=== PATIENT | female | born 1985 | race Caucasian/White ===

== ENCOUNTER 2019-08-20 19:14 | Emergency (ER) | payer OTHER, SELFPAY ==
--- NOTE | ~2019-08-20 | XR_ITS ---
EXAMINATION: XR hip RT 2V w AP pelvis INDICATION: Right hip pain TECHNIQUE: AP view of the pelvis and two views of the right hip are obtained. COMPARISON: None available FINDINGS: Bone alignment is normal. There is no fracture. The soft tissues are unremarkable. A phlebo lith is noted in the right pelvis. IMPRESSION: 1. No acute osseous abnormality. Reviewed, dictated and finalized at location A.
--- NOTE | ~2019-08-20 | XR_ITS ---
EXAMINATION: XR foot RT min 3V DATE: 08/20/2019 19:43 INDICATION: Right foot pain, initial encounter TECHNIQUE: Dorsoplantar, lateral, and 2 oblique views of the right foot were obtained. COMPARISON: None. FINDINGS: There are acute, traumatic, closed, transverse fractures involving the bases of the first t hrough fourth metatarsals. There is soft tissue swelling of the foot near the fractures. Alignment of the metatarsal bases with the tarsals remains anatomic. No additional acute osseous abnormality is e vident. IMPRESSION: 1. Acute fractures at the bases of the first through fourth metatarsals. Reviewed, dictated and finalized at location A.
--- NOTE | ~2019-08-20 | XR_ITS ---
EXAMINATION: XR ankle RT min 3V INDICATION: Right ankle pain, initial encounter TECHNIQUE: Four views of the right ankle are obtained. COMPARISON: None available FINDINGS: There is no fracture, dislocation, or subluxation of the ankle. The ankle soft tissues are unremarkable. Fractures of the first through fourth metatarsals are described separately. IMPRESSION: 1. No acute osseous abnormality of the ankle. Reviewed, dictated and finalized at location A.
[2019-08-20 19:17] VITALS: BP 118/75; PULSE 78; RESP 18; TEMP 36.3; O2SAT 100
--- NOTE | 2019-08-20 19:30 | ED.LOWEXIN ---
HPI - Extremity Injury (Lower) General Chief Complaint: Extremity Injury, Lower Stated Complaint: foot injury Time Seen by Provider: 08/20/19 19:26 Source: RN notes reviewed History of Present Illness HPI Narrative: Patient presents emergency department from home for right foot pain. Patient states that she was stepping down off a curb and denies from store when she twisted her right foot. Patient has pain of her right dorsal foot with mild swelling noted. She denies any other trauma or injury. States she is taking nothing previously for the pain denies any numbness or tingling or any other symptoms Related Data Home Medications Medication Instructions Recorded Confirmed sertraline 100 mg PO DAILY 08/20/19 sumatriptan succinate [Imitrex] 100 mg PO ONCE 08/20/19 Allergies Allergy/AdvReac Type Severity Reaction Status Date / Time nickel AdvReac Rash Verified 08/20/19 19:21 Review of Systems Review of Systems: Narrative: Gen.: Denies fevers or chills Musculoskeletal: See HPI Neuro: Denies numbness, tingling, weakness Skin: Denies rash Endo: Denies DM PMFSH Past Medical History Medical History (Updated 08/20/19 @ 20:45 by Anshu Alexis DO) Patient denies significant medical history Social History Social History Gender identity (if verbalized by the patient): Female Exam Narrative: Exam Narrative: APPEARANCE: No acute distress, nontoxic, resting in bed Eyes: EOMI HEENT: Normocephalic, atraumatic, RESPIRATORY: No respiratory distress MUSCULOSKELETAl: Tender palpation of the right dorsal midfoot with swelling noted no ecchymosis mild tenderness of the lateral medial malleolus with no swelling or ecchymosis, no tenderness of the right knee or hip, dorsalis pedis pulse 2+, neurovascular intact NEURO: Awake and alert. Following commands, speech normal, no focal deficits SKIN:: Warm, dry. Normal Color no rash or lesions Course Course Emergency Course: Patient does complain of some right hip pain at this time there is no tenderness over the right hip she has full flexion extension without pain but mild noted by the patient in the region obtain x-ray Dr. Martinez presentation work-up. Agrees with plan for discharge with short leg posterior splint follow-up as an outpatient Discussed with patient results of workup and diagnosis. Discussed need for follow-up with primary care, proper use of medication, and reasons to return to the emergency department. Patient understands and agrees to current treatment plan Vital Signs Vital signs: Vital Signs Temperature 97.3 F L 08/20/19 19:17 Pulse Rate 78 08/20/19 19:17 Respiratory Rate 18 08/20/19 19:17 Blood Pressure 118/75 08/20/19 19:17 Pulse Oximetry 100 08/20/19 19:17 Temperature 97.3 F L 08/20/19 19:17 Pulse Rate 78 08/20/19 19:17 Respiratory Rate 18 08/20/19 19:17 Blood Pressure 118/75 08/20/19 19:17 Pulse Oximetry 100 08/20/19 19:17 Procedures Orthopedic Splinting/Casting Injury #1: Lower Extremity Injury Location: lower leg OCL: short leg Pre-Procedure Neuro Vascular Exam: normal Post-Procedure Neuro Vascular Exam: normal Discharge Plan Discharge Clinical Impression: Closed nondisplaced fracture of first metatarsal bone of right foot, Closed nondisplaced fracture of second metatarsal bone of right foot, Closed nondisplaced fracture of third metatarsal bone of right foot, Closed nondisplaced fracture of fourth metatarsal bone of right foot Patient Disposition: Home, Self-Care Condition: Stable Instructions: Antibiotic Form, Foot Fracture in Adults (ED) Additional Instructions: Return for increasing pain numbness or tingling in the extremity or any other symptoms of concern Prescriptions: New hydrocodone-acetaminophen 5-325 mg tablet 1 tablet PO Q4H PRN (Reason: pain) Qty: 10 RF: 0 ibuprofen [IBU] 600 mg tablet
[2019-08-20] MEDS: IBUPROFEN 600 MG TABLET PO (19:48)
== END 2019-08-20 21:16 | disposition home or self-care (01) ==
PROVIDERS: Emergency Provider Emergency Medicine; PCP Internal Medicine
DX: S92.311A Displaced fracture of first metatarsal bone, right foot, initial encounter for closed fracture (principal); S92.321A Displaced fracture of second metatarsal bone, right foot, initial encounter for closed fracture; S92.331A Displaced fracture of third metatarsal bone, right foot, initial encounter for closed fracture; S92.341A Displaced fracture of fourth metatarsal bone, right foot, initial encounter for closed fracture; X50.9XXA Other and unspecified overexertion or strenuous movements or postures, initial encounter
CPT/HCPCS: 29515; 73502; 73610; 73630; 99284; A9270

== ENCOUNTER → 2021-01-05 15:16 | Outpatient (CLI) | payer OTHER, SELFPAY ==
--- NOTE | ~2021-01-05 | XR_ITS ---
XR lumbar spine 6V w bending DATE: 01/05/2021 15:44 INDICATION: Acute midline low back pain for 3 weeks TECHNIQUE: AP, lateral, coned lateral lumbosacral views. Flexion and extension standing lateral views . COMPARISON: None FINDINGS: The lumbar vertebrae are normally aligned. No fracture or bone destruction, or spondylolist hesis. The lumbar pedicles are intact. There is no instability on flexion or extension. The lumbar an d lumbosacral interspaces appear well preserved. Normal sacroiliac joints. IMPRESSION: Normal examination Reviewed, dictated and finalized at location A. IMPRESSION: Normal examination
== END ==
LOC: EXPCRAD 15:18
PROVIDERS: PCP Physician Assistant; Visit Provider Physician Assistant
DX: M54.50 Low back pain, unspecified (principal)
CPT/HCPCS: 72114